=== PATIENT | male | born 1995 | race Caucasian/White ===

== ENCOUNTER 2017-03-15 06:46 | Emergency (ER) | payer OTHER ==
--- NOTE | 2017-03-15 07:07 | ED Physician Documentation ---
History of Present Illness - Stated complaint Stated Complaint: FEVER/SORE THROAT - Chief complaint Chief Complaint: Heent - History obtained from History obtained from: Patient (Pt states that for the past day or so he has had a sore throat, no congestion, minimal cough, fever last night, some nausea and vomiting, no travel, no ABX use, no rash, no GI sx, no sick contacts. still tolerating PO intake.) Review of Systems Constitutional: reports: Fever, Chills Eyes: denies: Discharge Ears: denies: Ear pain, Drainage/discharge, Tinnitus/ringing Nose: denies: Rhinorrhea / runny nose, Congestion, Sinus pressure / pain Throat: reports: Sore throat, Swollen tonsils Cardiac: denies: Chest pain / pressure, Palpitations, Pedal edema Respiratory: reports: Cough. denies: Dyspnea, Hemoptysis GI: reports: Nausea, Vomiting. denies: Abdominal Pain, Constipation, Diarrhea, Bloody / black stool : denies: Dysuria, Frequency Skin: denies: Rash, Lesions Musculoskeletal: denies: Neck pain, Joint swelling Neurologic: denies: Altered mental status, Headache PD PAST MEDICAL HISTORY - Past Medical History Past Medical History: No - Past Surgical History Past Surgical History: No - Present Medications Home Medications: Ambulatory Orders Medication Instructions Recorded Confirmed Loratadine [Claritin] 10 mg PO DAILY #30 tablet 03/15/17 Ondansetron Odt [Zofran] 4 mg TL Q6H PRN #10 tablet 03/15/17 - Allergies Allergies/Adverse Reactions: Allergies Allergy/AdvReac Type Severity Reaction Status Date / Time No Known Drug Allergies Allergy Verified 03/15/17 06:52 - Social History Does the pt smoke?: Yes Smoking Status: Current every day smoker Does the pt drink ETOH?: Yes Does the pt have substance abuse?: No - Immunizations Immunizations are current?: Yes - POLST Patient has POLST: No PD ED PE NORMAL - Vitals Vital signs reviewed: Yes - General General: Alert and oriented X 3, No acute distress - HEENT HEENT: Atraumatic. No: Ears normal (bilateral TM's bulging w/o redness) - Neck Neck: No: No adenopathy (bilateral anterior cervical LAD) - Cardiac Cardiac: Strong equal pulses. No: RRR (tachycardic but regular), No murmur - Respiratory Respiratory: No respiratory distress, Clear bilaterally - Abdomen Abdomen: Soft, Non tender, Non distended - Derm Derm: Normal color, Warm and dry, No rash - Extremities Extremities: No edema, No calf tenderness / cord - Neuro Neuro: Alert and oriented X 3 Eye Opening: Spontaneous Motor: Obeys Commands Verbal: Oriented GCS Score: 15 - Psych Psych: Normal mood, Normal affect Results - Vitals Vitals: Vital Signs - 24 hr 03/15/17 06:52 Temperature 38.6 C H Heart Rate 113 H Respiratory 18 Rate Blood Pressure 138/76 H O2 Saturation 98 Oxygen O2 Source Room air - Labs Labs: Laboratory Tests 03/15/17 06:55 Group A Strep Rapid Negative PD MEDICAL DECISION MAKING - ED course Complexity details: d/w patient ED course: Rapid strep neg, has a fever which is probably the reason for the tachycardia. pt is non-toxic. Gave decadron in the ER. we discussed treatment to include tylenol, motrin and time. will give rx for claritin. pt given return precautions. Departure - Departure Disposition: 01 Home, Self Care Clinical Impression: Pharyngitis Qualifiers: Pharyngitis/tonsillitis etiology: unspecified etiology Qualified Code(s): J02.9 - Acute pharyngitis, unspecified Condition: Good Instructions: ED Pharyngitis Viral Follow-Up: primary,care provider [Other] Prescriptions: Loratadine [Claritin] 10 mg PO DAILY #30 tablet Ondansetron Odt [Zofran] 4 mg TL Q6H PRN #10 tablet PRN Reason: Nausea / Vomiting Comments: increase your fluid intake. Tylenol and motrin for any fevers and body aches. Return to the ER for any new symptoms, inability to tolerate oral intake, rashes , problems breathing or any other new or worsening symptoms. See your medical for any work related restrictions.
[2017-03-15 07:10] LABS: RAPID STREP SCREEN REAGENT QC YELLOW (YELLOW)
[2017-03-15] MEDS ORDERED: DEXAMETHASONE 10 MG/ML VIAL PO STA (07:16)
[2017-03-15 07:31] VITALS: BP 119/72
[2017-03-15] MEDS ORDERED: DEXAMETHASONE 10 MG/ML VIAL ONE (07:32)
== END 2017-03-15 07:30 | disposition home or self-care (01) ==
LOC: ED 06:46
DX: J02.9 Acute pharyngitis, unspecified (principal); F17.200 Nicotine dependence, unspecified, uncomplicated
CPT/HCPCS: 87070; 87077; 87430; 99283

== ENCOUNTER 2017-03-16 23:21 | Emergency (ER) | payer OTHER ==
[2017-03-16 23:37] VITALS: BP 116/69
[2017-03-16] MEDS ORDERED: PENICILLIN VK 250 MG TABLET PO STA (23:43)
--- NOTE | 2017-03-16 23:49 | ED Physician Documentation ---
PD HPI HEENT - Stated complaint Stated Complaint: FEVER,SWELLING THROAT - Chief complaint Chief Complaint: General - History obtained from History obtained from: Patient - History of Present Illness Timing - onset: How many days ago (4) Timing - details: Gradual onset, Still present Location: Throat Worsens: Swalllowing Associated symptoms: Swollen nodes. No: Fever, Congestion, Rhinorrhea Similar symptoms before: Work up / diagnostics Recently seen: Emergency Dept - Additional information Additional information: Patient is a 21 year old male presenting to the emergency department for throat pain. patient was seen a couple of days ago here in the emergency department. At that time patient's rapid strep was negative so patient was treated with decadron and discharged home.. Patient states that his symptoms had worsened so he came to the emergency department for evaluation. Review of Systems Constitutional: denies: Fever, Chills Eyes: reports: Reviewed and negative Ears: denies: Ear pain Nose: denies: Congestion Throat: reports: Sore throat, Swollen tonsils Cardiac: reports: Reviewed and negative Respiratory: reports: Reviewed and negative GI: denies: Nausea, Vomiting : reports: Reviewed and negative Skin: reports: Rash Musculoskeletal: reports: Neck pain Neurologic: denies: Generalized weakness, Focal weakness, Headache, Head injury Immunocompromised: denies: Immunocompromised PD PAST MEDICAL HISTORY - Past Medical History Past Medical History: No Cardiovascular: None Respiratory: None Neuro: None Endocrine/Autoimmune: None GI: None : None HEENT: None Psych: None Musculoskeletal: None Derm: None - Past Surgical History Past Surgical History: No - Present Medications Home Medications: Ambulatory Orders Medication Instructions Recorded Confirmed Loratadine [Claritin] 10 mg PO DAILY #30 tablet 03/15/17 Ondansetron Odt [Zofran] 4 mg TL Q6H PRN #10 tablet 03/15/17 Penicillin V Potassium 500 mg PO Q6HR 10 Days tablet 03/16/17 - Allergies Allergies/Adverse Reactions: Allergies Allergy/AdvReac Type Severity Reaction Status Date / Time No Known Drug Allergies Allergy Verified 03/15/17 06:52 - Social History Does the pt smoke?: Yes Smoking Status: Current every day smoker Does the pt drink ETOH?: Yes Does the pt have substance abuse?: No - Immunizations Immunizations are current?: Yes - POLST Patient has POLST: No PD ED PE NORMAL - Vitals Vital signs reviewed: Yes - General General: Alert and oriented X 3, Well developed/nourished - HEENT HEENT: Atraumatic, PERRL, Moist mucous membranes - Neck Neck: Supple, no meningeal sign - Cardiac Cardiac: RRR, No murmur - Respiratory Respiratory: No respiratory distress, Clear bilaterally - Abdomen Abdomen: Soft, Non distended - Extremities Extremities: No deformity, No edema - Neuro Neuro: Alert and oriented X 3, No motor deficit, No sensory deficit, Normal speech - Psych Psych: Normal mood PD ED PE EXPANDED - HEENT HEENT: Pharyngeal erythema, Swollen tonsils, Soft palate petecchiae - Derm Derm: Rash (rash on neck and chest consistent with scarlet fever) Results - Vitals Vitals: Vital Signs - 24 hr 03/16/17 23:35 Temperature 36.9 C Heart Rate 93 Respiratory 17 Rate Blood Pressure 116/69 O2 Saturation 99 Oxygen O2 Source Room air PD MEDICAL DECISION MAKING - ED course Complexity details: reviewed old records, reviewed results, re-evaluated patient , considered differential, d/w patient ED course: Patient was seen and examined at bedside. Patient's previous records were reviewed and the culture was positive for group C strep. Patient was treated with pen vk. Patient required no further work up and was stable for discharge with outpatient follow up. Departure - Departure Disposition: 01 Home, Self Care Clinical Impression: Strep pharyngitis Condition: Good Instructions: ED Strep Pharyngitis Conf Follow-Up: Tristen Cobb MD [Primary Care Provider] - Prescriptions: Penicillin V Potassium 500 mg PO Q6HR 10 Days tablet Comments: Your symptoms today are being caused by strep throat. You had your first dose of antibiotics today and you will need to be on them for the next 10 days. You should continue with motrin or tylenol as needed for fever and pain. You should follow up with your base doctor if your symptoms persist. You may return to the emergency department at any time for new, worsening or uncontrollable symptoms . Forms: Activity restrictions Discharge Date/Time: 03/16/17 23:59
[2017-03-16] MEDS ORDERED: PENICILLIN VK 250 MG TABLET PO ONE (23:50)
== END 2017-03-16 23:59 | disposition home or self-care (01) ==
LOC: ED 23:21
DX: J02.0 Streptococcal pharyngitis (principal); F17.200 Nicotine dependence, unspecified, uncomplicated
CPT/HCPCS: 99281; 99283; A9270